=== PATIENT | male | born 1965 | race Hispanic/Latino ===

== ENCOUNTER 2024-09-03 10:19 | Emergency (ER) | payer BC, OTHER ==
[~2024-09-03] VITALS: Ht 167.6 cm; Wt 88.5 kg
[~2024-09-03 10:19] MED LIST: AMOX TR-K CLV1 EAC2 PO
[2024-09-03 10:30] VITALS: PULSE 61; RESP 15; TEMP 97.9; O2SAT 99
[2024-09-03] MEDS ORDERED: AMOX TR-K CLV1 EAC2 PO (10:46)
== END 2024-09-03 11:09 | disposition home or self-care (01) ==
LOC: ER 10:40
DX: H66.91 Otitis media, unspecified, right ear (principal); H72.91 Unspecified perforation of tympanic membrane, right ear; I10 Essential (primary) hypertension
CPT/HCPCS: 99283